=== PATIENT | male | born 1970 | race Caucasian/White ===

== ENCOUNTER 2022-11-09 17:00 | Outpatient (RCR) | payer OTHER, SELFPAY | END 2022-12-07 13:27 | disposition home or self-care (01) | LOC: HO.PTCHIC 17:00 | PROVIDERS: PCP Family Medicine; Visit Provider Nurse Practitioner Family | DX: M54.50 Low back pain, unspecified (principal) | CPT/HCPCS: 97014; 97110; 97116; 97140; 97161; 97162 ==

== ENCOUNTER 2023-09-01 09:56 | Outpatient (REF) | payer OTHER, SELFPAY ==
--- NOTE | ~2023-09-01 | XR_ITS ---
EXAMINATION: XR KNEE, LEFT CLINICAL INFORMATION: Left knee pain. COMPARISON: None available. TECHNIQUE: Three views of the left knee. FINDINGS: Moderate-sized left knee joint effusion. Small tricompartmental marginal osteophytes. Chondrocalcinosis. Joint space appears well preserved. Bone mineralization is normal. No fracture or malalignment. XR/XR knee LT 3V IMPRESSION: 1. Moderate-sized left knee joint effusion. No acute osseous findings. 2. Mild tricompartmental osteoarthritis. 3. Chondrocalcinosis.
== END 2023-09-01 09:57 | disposition home or self-care (01) ==
LOC: HO.HOSX 09:56
PROVIDERS: Visit Provider Orthopaedic Surgery
DX: S83.242A Other tear of medial meniscus, current injury, left knee, initial encounter (principal)
CPT/HCPCS: 73562

== ENCOUNTER 2023-09-01 13:51 | Outpatient (AMB) | payer OTHER, SELFPAY ==
--- NOTE | 2023-09-01 13:53 | MHC.OFFVIS ---
Intake Intake Visit Reasons: ccnp left knee pain and swelling/ Confirmed Intake Note: Ino is a 52 year old male who presents as a new patient with complaints of progressively worsening left knee pain and giving way. The patient describes his pain as sharp and severe in nature. Most of the pain is along the medial aspect of his knee. The patient states that his symptoms have gotten worse over the last year in spite of continued non operative treatments. He has had cortisone injection therapy which gave him no relief. Has also done physical therapy which aggravated his pain. He has tried ibuprofen and Tylenol which gave him minimal relief. He states that his left knee will give out several times per day. Allergies oxcodone Adverse Reaction (Mild, Uncoded 09/01/23 14:12) Nausea REPLACED BY [facility] Social History (Updated 09/01/23 @ 14:12 by Katie Matamoros [facility]) Patient Tobacco Use Status: Current everyday Tobacco user Physical Exam Const Other: Well-nourished well-developed very friendly male awake alert and oriented x3 in no acute distress Extrem Other: Bilateral lower extremity examination shows good capillary refill, no skin lesions noted, normal sensation light touch Left knee examination shows a mild effusion, tenderness along his medial joint line, positive Aydee's test, no instability Results Reviewed Results Reviewed: Standing full weight-bearing x-rays of the patient's left knee show minimal joint space narrowing, no acute bony abnormalities Assessment & Plan Assessment & Plan (1) Tear of medial meniscus of left knee: Code(s): S83.242A - Other tear of medial meniscus, current injury, left knee, initial encounter Plan Mr. Chapman presents with progressively worsening left knee pain and mechanical symptoms most likely due to a tear of his medial meniscus. Thus, I will send the patient for an MRI of his left knee for further evaluation. If he does have a significant tear I will recommend arthroscopic surgery to optimize his future functional level. I will see the patient back once the MRI is completed to discuss the findings and treatment options. Will continue with his activity modifications in the meantime. Feel free to call me at any time should questions regarding his orthopedic management arise. Thank you very much for asking me to see this very friendly gentleman. I spent 22 minutes in reviewing the patient's records and imaging studies, seeing the patient and documenting in the medical record. Orders: Orders XR knee LT 3V Today M25.562 - Pain in left knee MR knee LT wo con Today S83.242A - Other tear of medial meniscus, current injury, left knee, initial encounter Coding Level of Care Code New Pt Level 2 (58259) Diagnoses Tear of medial meniscus of left knee S83.242A
== END 2023-09-01 14:30 | disposition home or self-care (01) ==
PROVIDERS: PCP Family Medicine; Visit Provider Orthopaedic Surgery
DX: S83.242A Other tear of medial meniscus, current injury, left knee, initial encounter (principal)
CPT/HCPCS: 99202

== ENCOUNTER 2023-09-28 11:23 | Outpatient (AMB) | payer OTHER, SELFPAY ==
--- NOTE | 2023-09-28 11:26 | MHC.OFFVIS ---
Intake Vital Signs 09/28/23 11:27 Height 5 ft 4 in Weight 165 lb BMI 28.3 Intake Visit Reasons: OV-Left knee pain-follow up Intake Note: Ino is a 52 year old male who presents with complaints of progressively worsening left knee pain and giving way. The patient describes his pain as sharp and severe in nature. Most of the pain is along the medial aspect of his knee. The patient states that his symptoms have gotten worse over the last year in spite of continued non operative treatments. He has had cortisone injection therapy which gave him no relief. Has also done physical therapy which aggravated his pain. He has tried ibuprofen and Tylenol which gave him minimal relief. He states that his left knee will give out several times per day. The patient was supposed to get an MRI here at [facility]. Did not hear from scheduling so he has not had an imaging study. Allergies oxcodone Adverse Reaction (Mild, Uncoded 09/01/23 14:12) Nausea Medication List - Last Reconciled 09/28/23 by Job Amanda MD ipratropium bromide intranasal lisinopril 30 mg PO DAILY methylprednisolone (Medrol (Rashid)) PO PER [facility] Social History (Updated 09/28/23 @ 11:33 by Katie Matamoros CMA) Patient Tobacco Use Status: Current everyday Tobacco user Current occupation: automotive parts clerk , Right hand dominate Physical Exam Vital Signs: BMI result Body Mass Index 28.3 Const Other: Well-nourished well-developed very friendly male awake alert and oriented x3 in no acute distress Extrem Other: Bilateral lower extremity examination shows good capillary refill, no skin lesions noted, normal sensation light touch Left knee examination shows a minimal effusion, minimal crepitus with range of motion, tenderness along his medial joint line, positive Aydee's test, no instability Results Reviewed Results Reviewed: Standing full weight-bearing x-rays of the patient's left knee show minimal joint space narrowing, no acute bony abnormalities Assessment & Plan Assessment & Plan (1) Tear of medial meniscus of left knee: Code(s): S83.242A - Other tear of medial meniscus, current injury, left knee, initial encounter Plan Mr. Chapman presents with progressively worsening left knee pain and mechanical symptoms most likely due to a tear of his medial meniscus. Thus, I will send the patient for an MRI of his left knee for further evaluation. I will see him back once the MRI is completed to discuss the findings and treatment options. Feel free to call me at any time should questions regarding his orthopedic management arise. I spent 22 minutes in reviewing the patient's records and imaging studies, seeing the patient and documenting in the medical record. Orders: Orders MR knee LT wo con Today S83.242A - Other tear of medial meniscus, current injury, left knee, initial encounter Coding Level of Care Code Est Pt Level 2 (07531) Diagnoses Tear of medial meniscus of left knee S83.242A
[2023-09-28 11:27] VITALS: BMI 28.3
== END 2023-09-28 11:51 | disposition home or self-care (01) ==
PROVIDERS: PCP Family Medicine; Visit Provider Orthopaedic Surgery
DX: S83.242A Other tear of medial meniscus, current injury, left knee, initial encounter (principal)
CPT/HCPCS: 99213

== ENCOUNTER → 2023-09-28 11:23 | Outpatient (BNVA) | payer OTHER, SELFPAY | PROVIDERS: PCP Family Medicine; Visit Provider Orthopaedic Surgery ==

== ENCOUNTER 2023-10-26 08:09 | Outpatient (AMB) | payer OTHER, SELFPAY ==
[2023-10-26 08:13] VITALS: BMI 28.3
--- NOTE | 2023-10-26 08:13 | MHC.OFFVIS ---
Intake Vital Signs 10/26/23 08:13 Height 5 ft 4 in Weight 165 lb BMI 28.3 Intake Visit Reasons: OV- Lt knee MRI Review Intake Note: Ino is a 53 year old male who presents for an MRI review of his Left knee. The patient describes his left knee pain as sharp in nature. Most of the pain along medial and anterior aspects of his knee. He states that at times it feels like his knee will give out. Does do quite a bit kneeling at work. He has tried wearing a foam pad when he is kneeling which gives him mild relief. Allergies oxcodone Adverse Reaction (Mild, Uncoded 09/01/23 14:12) Nausea Medication List - Last Reconciled 10/26/23 by Job Amanda MD ipratropium bromide intranasal lisinopril 30 mg PO DAILY methylprednisolone (Medrol (Rashid)) PO PER [facility] Social History (Updated 09/28/23 @ 11:33 by Katie Matamoros CMA) Patient Tobacco Use Status: Current everyday Tobacco user Current occupation: auto electrical technician , Right hand dominate Physical Exam Vital Signs: BMI result Body Mass Index 28.3 Const Other: Well-nourished well-developed very friendly male awake alert and oriented x3 in no acute distress Extrem Other: Bilateral lower extremity examination shows good capillary refill, no skin lesions noted, normal sensation light touch Left knee examination shows a mild effusion, mild crepitus with range of motion, tenderness along his medial joint line, positive Aydee's test, no instability Results Reviewed Results Reviewed: MRI of the patient's left knee shows mild to moderate diffuse degenerative changes most significant in the patellofemoral joint, a tear of the medial meniscus, no acute bony abnormalities Assessment & Plan Assessment & Plan (1) Tear of medial meniscus of left knee: Code(s): S83.242A - Other tear of medial meniscus, current injury, left knee, initial encounter Plan Ms. Chapman presents with left knee pain and mechanical symptoms due to early degenerative joint disease as well as a tear of his medial meniscus. I had a lengthy discussion with the patient regarding the treatment options. At this point the patient's symptoms are tolerable to him. He will continue with his activity modifications for now. He will follow up with me on an as-needed basis should his symptoms worsen in any way. Feel free to call me at any time should questions regarding his orthopedic management arise. I spent 22 minutes in reviewing the patient's records and imaging studies, seeing the patient and documenting in the medical record. Coding Level of Care Code Est Pt Level 2 (77135) Diagnoses Tear of medial meniscus of left knee S83.242A
== END 2023-10-26 08:29 | disposition home or self-care (01) ==
PROVIDERS: PCP Family Medicine; Visit Provider Orthopaedic Surgery
DX: S83.242A Other tear of medial meniscus, current injury, left knee, initial encounter (principal); M17.12 Unilateral primary osteoarthritis, left knee
CPT/HCPCS: 99214

== ENCOUNTER → 2023-10-26 08:09 | Outpatient (BNVA) | payer OTHER, SELFPAY | PROVIDERS: PCP Family Medicine; Visit Provider Orthopaedic Surgery ==